=== PATIENT | male | born 1960 | race Two or more races ===

== ENCOUNTER 2025-03-18 00:03 | Emergency (ER) | payer OTHER ==
[~2025-03-18] VITALS: Ht 177.8 cm; Wt 83.9 kg
[2025-03-18] MEDS ORDERED: METFORMIN HCL1000 M2 PO (00:14)
[2025-03-18] MEDS ORDERED: CABERGOLINE0.5 MG PO (00:14)
[2025-03-18] MEDS ORDERED: GLIPIZIDE XL2.5 MG PO (00:14)
[2025-03-18] MEDS ORDERED: SYNTHROID125 MCG PO (00:15)
[2025-03-18 00:16] VITALS: BP 130/71; O2SAT 100
== END 2025-03-18 05:19 | disposition home or self-care (01) ==
LOC: EDBD 00:04 → ER 00:04
DX: S00.03XA Contusion of scalp, initial encounter (principal); W18.39XA Other fall on same level, initial encounter; Y93.89 Activity, other specified; Y92.89 Other specified places as the place of occurrence of the external cause; Y99.9 Unspecified external cause status; E11.9 Type 2 diabetes mellitus without complications; Z79.84 Long term (current) use of oral hypoglycemic drugs